=== PATIENT | male | born 1995 | race Asian ===

== ENCOUNTER 2016-06-10 01:35 | Emergency (ER) | payer SELFPAY ==
[~2016-06-10] VITALS: Ht 170.2 cm; Wt 54.0 kg
[2016-06-10 01:38] VITALS: BP 156/80
[2016-06-10] MEDS ORDERED: MECLIZINE 12.5MG TABLET PO ONE (02:45)
== END 2016-06-10 02:55 | disposition home or self-care (01) ==
LOC: ER 01:47
DX: R42 Dizziness and giddiness (principal); F12.10 Cannabis abuse, uncomplicated
CPT/HCPCS: 99283; J8597